=== PATIENT | male | born 1975 | race Caucasian/White ===

== ENCOUNTER 2017-03-17 20:13 | Emergency (ER) | payer OTHER ==
[2017-03-17] MEDS ORDERED: LET GEL TOPICAL 1 EA SYR TP ONE ×2 (20:21)
[2017-03-17] MEDS ORDERED: TDAP ADULT 0.5 ML INJ (BOOSTRIX) IM ONE (20:21)
[2017-03-17 20:29] VITALS: BP 132/91; PULSE 89; RESP 16; TEMP 98.1; O2SAT 96
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
== END 2017-03-17 20:51 | disposition home or self-care (01) ==
LOC: CED 20:13
PROC: 3E0234Z Introduction of Serum, Toxoid and Vaccine into Muscle, Percutaneous Approach (ICD-10-PCS; principal; 2017-03-17)
PROC: 0HQEXZZ Repair Left Lower Arm Skin, External Approach (ICD-10-PCS; principal; 2017-03-17)
DX: S51.812A Laceration without foreign body of left forearm, initial encounter (principal); Z23 Encounter for immunization; V18.2XXA Unspecified pedal cyclist injured in noncollision transport accident in nontraffic accident, initial encounter